=== PATIENT | female | born 1940 | race Caucasian/White ===

== ENCOUNTER 2021-04-13 08:43 | Day surgery (SDC) | payer MEDICARE, BC ==
[~2021-04-13] VITALS: Ht 172.7 cm; Wt 77.0 kg
[2021-04-13 09:47] VITALS: BP 122/71; PULSE 78; TEMP 98.2
[2021-04-13] MEDS ORDERED: ZYLOPRIM 300MG300 MG PO (09:53)
[2021-04-13] MEDS ORDERED: CALCITRIOL PO (09:54)
[2021-04-13] MEDS ORDERED: COLACE 100100 MG/CAP PO (09:56)
[2021-04-13] MEDS ORDERED: CALCIUM CITRAT200 M2 PO (09:56)
[2021-04-13] MEDS ORDERED: KLONOPIN 1MG1 MG PO (09:56)
[2021-04-13] MEDS ORDERED: NATURAL IRON65 MG PO (09:58)
[2021-04-13] MEDS ORDERED: LASIX 20MG TABL20 MG PO (09:59)
[2021-04-13] MEDS ORDERED: LEVOXYL0.025 MG PO (09:59)
[2021-04-13] MEDS ORDERED: PROAMATINE 5MG T5 MG PO (10:00)
[2021-04-13] MEDS ORDERED: PRIL40 PO (10:01)
[2021-04-13] MEDS ORDERED: ALDACTONE 25MG25 M1 PO (10:02)
[2021-04-13] MEDS ORDERED: K-DUR20 MEQ PO (10:02)
[2021-04-13] MEDS ORDERED: TYLENOL 325MG325 MG PO (10:03)
[2021-04-13 10:35] VITALS: BP 116/53; PULSE 81; TEMP 98.3
--- NOTE | 2021-04-13 10:35 | NUR ---
REPORT RECIEVED FROM SID DÍAZ, PATIENT BROUGHT TO BAY 5 VIA CART. PLACED ON MONITORS, VITAL SIGNS STABLE. PATIENT IS AWAKE, ALERT. DON AT BEDSIDE TO DRIVE PATIENT HOME. BANDAID TO LEFT SIDE IS CDI. NEEDS TO REMAIN FLAT ON BACK UNTIL 1040. PATIENT REQUESTING SPRITE AT THIS TIME. LAB CALLED TO OBTAIN CBC. WARM BLANKET PROVIDED CALL RUTH WITHIN REACH.
[2021-04-13 10:50] VITALS: BP 117/68; PULSE 72
--- NOTE | 2021-04-13 10:50 | NUR ---
TOLERATING DRINK WITHOUT DIFFICULTY. IV STOPPED. LAB AT BEDSIDE TO DRAW. WILL MONITOR.
[2021-04-13 11:05] VITALS: BP 121/45; PULSE 69
--- NOTE | 2021-04-13 11:05 | NUR ---
LAB IS STILL IN ROOM, UNABLE TO GET BLOOD AT THIS TIME.
[2021-04-13 11:20] VITALS: BP 120/62; PULSE 70
--- NOTE | 2021-04-13 11:20 | NUR ---
LAB ABLE TO DRAW BLOOD. VITAL SIGNS STABLE. WILL MONITOR.
--- NOTE | 2021-04-13 11:40 | NUR ---
PATIENT STATES SHE FEELS READY TO GO HOME AT THIS TIME. IV REMOVED. PATIENT TO GET DRESSED AT THIS TIME.
[2021-04-13 11:45] LABS: BASO % 0.2 % (0.0-2.0); EOS # 0.1 (0.0-0.7); EOS % 1.6 % (0-4.0); GRAN # 4.7 (1.4-6.5); GRAN % 76.2 % (42.2-75.2); LYMPH # 0.7 (1.2-3.4); LYMPH % 11.4 % (20.0-51.0); MEAN CELL VOLUME 118 fl (80.0-100.0); MEAN CORPUSCULAR HGB CONC 29 g/dl (33.0-37.0); MONO # 0.6 (0.1-0.6); MONO % 9.8 % (1.7-9.3); PLATELET COUNT 198 K/mm3 (130-400); REDCELL DISTRIBUTION WIDTH-CV 13.5 % (11.5-14.5)
[2021-04-13 11:53] VITALS: BP 116/53; PULSE 81
[2021-04-13 11:55] LABS: HEMATOCRIT 24.8 % (37.0-47.0); HEMOGLOBIN 7.3 g/dl (12.5-16.0); MEAN CORPUSCULAR HEMOGLOBIN 35 pg (27.0-31.0)
--- NOTE | 2021-04-13 11:55 | NUR ---
DISCHARGE INSTRUCTIONS REVIEWED WITH PATIENT AND FAMILY MEMBER. ALL QUESTIONS ANSWERED. PATIENT BROUGHT DOWN TO LOBBY VIA WHEEL CHAIR TO BE DRIVEN HOME BY . ALL BELONGINGS IN HAND.
== END 2021-04-13 11:55 | disposition home or self-care (01) ==
LOC: SDCO 08:43
PROVIDERS: Pathology Anatomic Pathology & Clinical Pathology
DX: D53.9 Nutritional anemia, unspecified (principal); D64.89 Other specified anemias; I13.0 Hypertensive heart and chronic kidney disease with heart failure and stage 1 through stage 4 chronic kidney disease, or unspecified chronic kidney disease; N18.4 Chronic kidney disease, stage 4 (severe); I50.9 Heart failure, unspecified; E03.9 Hypothyroidism, unspecified; I48.91 Unspecified atrial fibrillation; M10.9 Gout, unspecified; I34.1 Nonrheumatic mitral (valve) prolapse; G47.33 Obstructive sleep apnea (adult) (pediatric); J44.9 Chronic obstructive pulmonary disease, unspecified; K21.9 Gastro-esophageal reflux disease without esophagitis; M19.90 Unspecified osteoarthritis, unspecified site; Z79.890 Hormone replacement therapy; Z79.899 Other long term (current) drug therapy; Z85.828 Personal history of other malignant neoplasm of skin
CPT/HCPCS: J2704